=== PATIENT | female | born 1955 | race Caucasian/White ===

== ENCOUNTER → 2018-03-08 | Outpatient (CLI) | payer OTHER ==
[~2018-03-08] MED LIST: ASPIRIN EC325 MG PO; ASPIRIN325 PO; COLACE100 MG PO; CYCLOBENZAPRINE10 MG; DOXYCYCLINE 10100 MG PO; FLURBIPROFEN PO; HYDROCODONE-AP1 EAC6 PO; IBUPROFEN 200200 M1 PO; IBUPROFEN 800800 M1 PO; LEVOTHYROXIN0.075 MG PO; LEVOTHYROXINE0.05 MG PO; LOVENOX; MIRALAX255 GM; OXYCODONE HCL 55 MG PO; OXYIR5 MG; PERCOCET 5-3251 EACH PO; PRILOSEC 20 MG20 MG; ROXICODONE5 MG PO; STOOL SOFTENER50 MG; VICODIN 5-5001 EACH; WELLBUTRIN 100100 MG PO
== END ==
LOC: M.RAD 03-01 14:00
DX: Z12.31 Encounter for screening mammogram for malignant neoplasm of breast (principal)

== ENCOUNTER 2018-11-21 12:11 | Emergency (ER) | payer OTHER ==
[~2018-11-21] VITALS: Ht 157.5 cm; Wt 68.0 kg
[2018-11-21] MEDS ORDERED: ARMOUR THYROID60 M1 PO (12:22)
[2018-11-21] MEDS ORDERED: TYMLOS1.56 ML (12:23)
[2018-11-21 12:59] LABS: ABSOLUTE BASOPHILS 0.1 thou/uL (0.0-0.2); ABSOLUTE EOSINOPHILS 0.2 thou/uL (0.0-0.7); ABSOLUTE LYMPHOCYTES 2.6 thou/uL (0.8-5.3); ABSOLUTE MONOCYTES 0.4 thou/uL (0.0-1.2); ABSOLUTE NEUTROPHILS 5.1 thou/uL (1.6-8.1); BASOPHILS 0.7 %; EOSINOPHILS 2.5 %; HEMATOCRIT 40.8 % (37.0-47.0); HEMOGLOBIN 13.8 gm/dL (12.0-15.0); LYMPHOCYTES 30.9 %; MCH 33.1 pg (26.0-34.0); MCHC 33.9 g/dL (28.0-37.0); MCV 97.7 fL (80.0-100.0); MONOCYTES 4.4 %; MPV 7.1 fl. (7.2-11.1); NUCLEATED RBCS 0 /100WBC; PLATELET COUNT* 290 thou/uL (150-400); POLYS 61.5 %; RBC 4.17 mil/uL (4.20-5.00); RDW-CV 14.6 % (10.5-14.5); WBC 8.3 thou/uL (4.0-11.0)
[2018-11-21 13:07] LABS: CREATININE 0.9 mg/dL (0.6-1.3); POTASSIUM 3.9 mmol/L (3.5-5.1)
[2018-11-21 13:08] LABS: APTT 26.3 Seconds (25.0-31.3); PROTIME 10.7 Seconds (9.20-11.50)
[2018-11-21 13:12] LABS: ALBUMIN 3.8 g/dL (3.4-5.0); TOTAL BILIRUBIN 0.3 mg/dL (<0.1-1.0); TOTAL PROTEIN 7.1 g/dL (6.4-8.2)
[2018-11-21] MEDS ORDERED: AEROCHAMBER MI1 EACH INH (16:00)
[2018-11-21] MEDS ORDERED: MEDROLDOSEPACK PO (16:00)
[2018-11-21] MEDS ORDERED: PROAIR HFA8.5 GM INH (16:00)
--- NOTE | 2018-11-21 16:10 | EKG ---
[place] [address] ELECTROCARDIOGRAM REPORT Name: COLLEEN PARRAJohanna Leach Room: [facility]#: [id number] Admission: 11/21/18 Attend Phys: Discharge: Date of : 53 Report #: [id number] THIS REPORT FOR: //name// [facility] ED Test Date: 2018-11-21 Test Time: 12:19:33 Pat Name: ROBERTO PARRA Department: Room: Gender: F [employer]: : 1955 Requested By: Glen Chiu Order Number: [id number] MD: Abel Spaulding Measurements Intervals Lynn Rate: 74 P: 58 SC: 186 QRS: 35 QRSD: 107 T: 60 QT: 406 QTc: 451 Interpretive Statements Sinus rhythm Low voltage, precordial leads Abnormal R-wave progression, early transition Compared to ECG 09/18/2015 10:23:17 no change Electronically Signed On 11-21-2018 16:10:19 CDT by Abel Spaulding [email or web address] <ELECTRONICALLY SIGNED> By: Abel Spaulding MD, [facility] 11/21/18 1610 121 18 Abel Spaulding MD, FAC /EPI
[2018-11-21 16:21] VITALS: BP 106/57
== END 2018-11-21 16:22 | disposition home or self-care (01) ==
LOC: M.ERS 12:11
PROVIDERS: Emergency Medicine
DX: J98.01 Acute bronchospasm (principal); J44.9 Chronic obstructive pulmonary disease, unspecified; E03.9 Hypothyroidism, unspecified; M19.90 Unspecified osteoarthritis, unspecified site; Z88.2 Allergy status to sulfonamides